=== PATIENT | male | born 1935 | race Caucasian/White ===

== ENCOUNTER 2017-04-03 12:37 | Emergency (ER) | payer MEDICARE, OTHER ==
[~2017-04-03] VITALS: Ht 180.3 cm; Wt 85.0 kg
[~2017-04-03 12:37] MED LIST: CALC12502 PO; CARD120T4 PO; COUM4TAB7 PO; FURO1TAB93 PO; LEVO.025 PO; LISI2.5T3 PO; METO50TA11 PO; OCUVCAP; PACE200T4 PO
[2017-04-03 12:38] VITALS: BP 144/86; PULSE 110; RESP 15; TEMP 98.2; O2SAT 98
[2017-04-03 13:29] VITALS: PULSE 88
[2017-04-03] MEDS ORDERED: ATOR10TA15 PO (13:29)
[2017-04-03] MEDS ORDERED: METO50TA PO (13:29)
[2017-04-03] MEDS ORDERED: DILT180C36 PO (13:29)
[2017-04-03] MEDS ORDERED: FURO40TA PO (13:29)
[2017-04-03] MEDS ORDERED: COUM2.5T PO (13:29)
[2017-04-03] MEDS ORDERED: LISI2.5T3 PO (13:29)
[2017-04-03] MEDS ORDERED: LEVO50TA4 PO (13:29)
[2017-04-03] MEDS ORDERED: POTA-243 PO (13:29)
[2017-04-03] MEDS ORDERED: AMIO200T PO (13:29)
[2017-04-03] MEDS ORDERED: WARF-23 PO (13:29)
--- NOTE | 2017-04-03 13:50 | RADRPT ---
EXAM DATE/TIME: 04/03/2017 13:36 [facility] COMPARISON: No previous studies available for comparison. INDICATIONS : Left tibia/fibula pain, redness, and swelling after hitting his leg on a golf cart. MEDICAL HISTORY : None. SURGICAL HISTORY : Pacemaker. ENCOUNTER: Initial ACUITY: 1 week PAIN SCORE: 5/10 LOCATION: Left tibia/fibula FINDINGS: Two view examination of the left tibia demonstrates no evidence of fracture or dislocation. Bony min eralization is normal. There appears to be some soft tissue prominence in the region of a computer ge nerated arrow In the region of clinical swelling. CONCLUSION: 1. Probable small soft tissue hematoma/cellulitis in the lateral lower leg. 2. No associated fracture. Esvin Villanueva MD on April 03, 2017 at 13:44 Board Certified Radiologist. This report was verified electronically.
--- NOTE | 2017-04-03 13:51 | RADRPT ---
EXAM DATE/TIME: 04/03/2017 13:38 [facility] COMPARISON: No previous studies available for comparison. INDICATIONS : Left ankle pain and bruising after hitting his leg on a golf cart. MEDICAL HISTORY : None. SURGICAL HISTORY : Pacemaker. ENCOUNTER: Initial ACUITY: 1 week PAIN SCORE: 2/10 LOCATION: Left ankle FINDINGS: Three view exam was performed of the left ankle. The bony structures are in normal alignment. No ev idence of fracture or dislocation. There is some mild soft tissue swelling, particularly over the lat eral malleolus. The ankle mortise is intact. No radiopaque foreign bodies are seen. Bony mineraliz ation is normal. CONCLUSION: Mild soft tissue swelling. No acute fracture. Esvin Villanueva MD on April 03, 2017 at 13:49 Board Certified Radiologist. This report was verified electronically.
--- NOTE | 2017-04-03 14:32 | PD ---
HPI Chief Complaint: Skin Problem Time Seen by Provider: 12:59 Travel History International Travel<30 days: No Contact w/Intl Traveler<30days: No Traveled to known affect area: No History of Present Illness HPI 81-year-old male came to the emergency room with history of left leg injury and swelling 1 week ago. Patient says that he had banged his lateral aspect of his left leg accidentally while he was in a golf cart. Patient is on Coumadin for A. fib and since then he has noticed that the leg has been swelling. As a painful knot on the lower lateral aspect of his leg. No fever or chills. She was little tachycardic when he arrived in triage. Patient had an INR done 2 days ago which was 2.9. He is here mainly because of the pain and the swelling. Patient is able to ambulate but the leg hurts a little bit. PFSH Past Medical History Narrative Medical List of his past medical, surgical, social and family history as reviewed from the nursing note. Hx Anticoagulant Therapy: Yes Atrial Fibrillation: Yes Heart Rhythm Problems: Yes (a-fib) Cancer: Yes (SKIN CA) Cardiovascular Problems: Yes High Cholesterol: Yes Chemotherapy: No Chest Pain: Yes Congestive Heart Failure: No Diminished Hearing: No Endocrine: No Genitourinary: No Hypertension: Yes Immune Disorder: No Musculoskeletal: No Neurologic: No Psychiatric: No Reproductive: No Respiratory: No Radiation Therapy: No Thyroid Disease: Yes Past Surgical History Abdominal Surgery: No Arteriovenous Shunt: No Body Medical Devices: pacemaker Ear Surgery: No Endocrine Surgery: No Eye Surgery: No Genitourinary Surgery: No Gynecologic Surgery: No Insulin Pump: No Joint Replacement: No Oral Surgery: No Pacemaker: Yes Thoracic Surgery: No Other Surgery: Yes (VASECTOMY, PACEMAKER) Social History Alcohol Use: No Tobacco Use: No Substance Use: No Allergies-Medications (Allergen,Severity, Reaction): Coded Allergies: No Known Allergies (Unverified , 04/05/17) Comments No known drug allergies. Reported Meds & Prescriptions Reported Meds & Active Scripts Active Keflex (Cephalexin) 500 Mg Cap 500 Mg PO Q8H Reported Warfarin 5 Mg Tab 5 Mg PO MOWEFR Coumadin (Warfarin) 2.5 Mg Tab 2.5 Mg PO SUTUTHSA Dilt-Xr (Diltiazem HCl) 180 Mg Caper 180 Mg PO DAILY Atorvastatin (Atorvastatin Calcium) 10 Mg Tab 10 Mg PO HS Amiodarone (Amiodarone HCl) 200 Mg Tab 200 Mg PO BID Furosemide 40 Mg Tab 40 Mg PO DAILY Metoprolol Tartrate 50 Mg Tab 50 Mg PO BID Klor-Con 10 (Potassium Chloride) 10 Meq Tab 20 Meq PO BID Lisinopril 2.5 Mg Tab 2.5 Mg PO DAILY Levothyroxine (Levothyroxine Sodium) 50 Mcg Tab 50 Mcg PO DAILY Narrative Medication List of his home medications refer him the nursing note. Review of Systems Except as stated in HPI: all other systems reviewed are Neg Physical Exam Narrative GENERAL: Awake, alert, no obvious distress SKIN: Focused skin assessment warm/dry. Left leg on the lower third lateral aspect has a 3 x 3 cm firm and knot that is tender to touch with some central fluctuation. The leg is edematous with some swelling of the dorsum of his foot. There is bruising on the dorsum of his base of the toes. Distal neurovascular intact HEAD: Atraumatic. Normocephalic. EYES: Pupils equal and round. No scleral icterus. No injection or drainage. ENT: No nasal bleeding or discharge. Mucous membranes pink and moist. NECK: Trachea midline. No JVD. CARDIOVASCULAR: Regular rate and rhythm. No murmur appreciated. RESPIRATORY: No accessory muscle use. Clear to auscultation. Breath sounds equal bilaterally. GASTROINTESTINAL: Abdomen soft, non-tender, nondistended. Hepatic and splenic margins not palpable. MUSCULOSKELETAL: No obvious deformities. No clubbing. No cyanosis. No edema. NEUROLOGICAL: Awake and alert. No obvious cranial nerve deficits. Motor grossly within normal limits. Normal speech. PSYCHIATRIC: Appropriate mood and affect; insight and judgment normal. Data Data Last Documented VS Vital Signs Date Time Temp Pulse Resp B/P (MAP) Pulse Ox O2 Delivery O2 Flow Rate FiO2 04/03/17 16:16 04/03/17 13:29 88 04/03/17 12:38 98.2 15 98 Orders Orders Ankle, Complete ([id number]) (04/03/17 ) Tibia/Fibula (Ap/Lat) (04/03/17 ) Wound Culture And Gram Stain (04/03/17 14:57) Lidocaine 1% Inj (50 Ml) (Xylocaine 1% I (04/03/17 14:59) Lidocaine Pf 1% Inj (Xylocaine-Mpf 1% In (04/03/17 15:15) Lidocaine 1% Inj (50 Ml) (Xylocaine 1% I (04/03/17 15:15) [facility] Medical Decision Making Medical Screen Exam Complete: Yes Emergency Medical Condition: Yes Medical Record Reviewed: Yes Differential Diagnosis Hematoma, abscess, cellulitis, fracture Narrative Course 2:50 PM x-rays within normal limit. I did not repeat an INR since one was done 2 days ago which was 2.9. 3:29 PM I have I&D the hematoma which in my opinion was getting infected. Patient tolerated the procedure well. Please refer to my procedure note. He will be discharged home and asked to follow-up in 48 hours. We'll give him an antibiotic prescription to go home with. Procedures Procedure Narrative Incision and drainage: The left leg was cleaned with Betadine swab 3. 1% lidocaine 5 mL was infiltrated to the subcutaneous tissue. 2 cm incision was made with a scalpel under sterile precautions. With the help of forceps as well as Q-tip the hematoma was evacuated. Swab was collected and sent. Patient tolerated the procedure well. Packing was done with half-inch iodoform gauze strip. Dressing was applied with 4 x 4 gauze and Curlex. Bleeding was controlled. EKG Prior to Arrival: No Diagnosis Primary Impression: Infection of wound hematoma Referrals: Primary Care Physician Additional Instructions: Please return to the ER in 48 hours to have the packing removed. You can come to [facility] emergency room where I am working 4 PM to 12 AM on Friday. I will be happy to see you they're. Take the antibiotic as per the prescription direction. Keep the leg elevated above the heart level. Compression stockings at all times except was taking shower. Hold your next to Coumadin doses. Med/Other Pt SpecificInfo: Prescription(s) given Scripts Cephalexin (Keflex) 500 Mg Cap 500 MG PO Q8H for Infection, #30 CAP 0 Refills Prov: Santy Roy MD 04/03/17 Disposition: 01 DISCHARGE HOME Condition: Stable Santy Roy MD Apr 03, 2017 14:32
[2017-04-03] MEDS ORDERED: LIDOCAINE HCL 1% 50 ML VIAL ONE (14:59)
[2017-04-03] MEDS ORDERED: LIDOCAINE HCL 1% 50 ML VIAL INFIL ONE (15:15)
[2017-04-03] MEDS ORDERED: LIDOCAINE HCL 1% PF 30 ML VIAL INFIL ONE (15:15)
[2017-04-03] MEDS ORDERED: CEPH-460 PO (15:31)
== END 2017-04-03 16:17 | disposition home or self-care (01) ==
LOC: NEPC 12:37
DX: S80.12XA Contusion of left lower leg, initial encounter (principal); W22.09XA Striking against other stationary object, initial encounter; I48.91 Unspecified atrial fibrillation; I10 Essential (primary) hypertension; Y92.39 Other specified sports and athletic area as the place of occurrence of the external cause; Y93.I9 Activity, other involving external motion; Z79.01 Long term (current) use of anticoagulants
CPT/HCPCS: 10140; 73590; 73610; 87070

== ENCOUNTER 2017-04-05 17:13 | Emergency (ER) | payer MEDICARE, OTHER ==
[~2017-04-05] VITALS: Ht 180.3 cm; Wt 88.7 kg
[~2017-04-05 17:13] MED LIST changes: +AMIO200T PO; +ATOR10TA15 PO; -CALC12502 PO; -CARD120T4 PO; +CEPH-460 PO; +COUM2.5T PO; -COUM4TAB7 PO; +DILT180C36 PO; -FURO1TAB93 PO; +FURO40TA PO; -LEVO.025 PO; +LEVO50TA4 PO; +METO50TA PO; -METO50TA11 PO; -OCUVCAP; -PACE200T4 PO; +POTA-243 PO; +WARF-23 PO
[2017-04-05 17:16] VITALS: BP 156/87; PULSE 95; RESP 18; TEMP 97.2; O2SAT 97
--- NOTE | 2017-04-05 17:28 | PD ---
HPI Chief Complaint: Wound/Suture/Staple Re-Check Time Seen by Provider: 17:27 Travel History International Travel<30 days: No Contact w/Intl Traveler<30days: No Traveled to known affect area: No History of Present Illness HPI 81-year-old male was seen by me 2 days ago for an infected hematoma of his left leg. His hematoma was evacuated by I & D by me. Packing was applied and I had asked him to follow-up in 48 hours. He wanted to follow up with me and is here for the same. Patient has followed all the instructions like I had told him very well. He is currently on antibiotic that was prescribed. Vital signs are stable. Patient complains of some leg pain when he walks. He says that he never took the compression stockings off since he put them on 48 hours ago. His culture of the wound did not grow any bacteria. [facility] Past Medical History Narrative Medical List of his past medical, surgical, social and family history is reviewed from the nursing note. Hx Anticoagulant Therapy: Yes (COUMADIN) Atrial Fibrillation: Yes Heart Rhythm Problems: Yes (a-fib) Cancer: Yes (SKIN CA) Cardiovascular Problems: Yes (CHF,PACER,AFIB) High Cholesterol: Yes Chemotherapy: No Chest Pain: Yes Congestive Heart Failure: No Diminished Hearing: No Endocrine: No Genitourinary: No Hypertension: Yes Immune Disorder: No Musculoskeletal: No Neurologic: No Psychiatric: No Reproductive: No Respiratory: No Radiation Therapy: No Thyroid Disease: Yes Past Surgical History Abdominal Surgery: No Arteriovenous Shunt: No Body Medical Devices: pacemaker Ear Surgery: No Endocrine Surgery: No Eye Surgery: No Genitourinary Surgery: No Gynecologic Surgery: No Insulin Pump: No Joint Replacement: No Oral Surgery: No Pacemaker: Yes Thoracic Surgery: No Other Surgery: Yes (VASECTOMY, PACEMAKER) Social History Alcohol Use: No Tobacco Use: No Substance Use: No Allergies-Medications (Allergen,Severity, Reaction): Coded Allergies: No Known Allergies (Unverified , 04/05/17) Comments No known drug allergies. Reported Meds & Prescriptions Reported Meds & Active Scripts Active Keflex (Cephalexin) 500 Mg Cap 500 Mg PO Q8H Reported Warfarin 5 Mg Tab 5 Mg PO MOWEFR Coumadin (Warfarin) 2.5 Mg Tab 2.5 Mg PO SUTUTHSA Dilt-Xr (Diltiazem HCl) 180 Mg Caper 180 Mg PO DAILY Atorvastatin (Atorvastatin Calcium) 10 Mg Tab 10 Mg PO HS Amiodarone (Amiodarone HCl) 200 Mg Tab 200 Mg PO BID Furosemide 40 Mg Tab 40 Mg PO DAILY Metoprolol Tartrate 50 Mg Tab 50 Mg PO BID Klor-Con 10 (Potassium Chloride) 10 Meq Tab 20 Meq PO BID Lisinopril 2.5 Mg Tab 2.5 Mg PO DAILY Levothyroxine (Levothyroxine Sodium) 50 Mcg Tab 50 Mcg PO DAILY Narrative Medication List of his home medications reviewed from the nursing note. Review of Systems Except as stated in HPI: all other systems reviewed are Neg Musculoskeletal: Positive: Pain Skin: Positive Other (drained hematoma with packing) Physical Exam Narrative GENERAL: Awake, alert, no obvious distress SKIN: Focused skin assessment warm/dry. Slight surrounding erythema around the wound. Packing wick is out and I pulled the entire packing was taken out. The wound looks good. The leg in the foot swelling is much better. Still some ecchymosis of the toes. HEAD: Atraumatic. Normocephalic. EYES: Pupils equal and round. No scleral icterus. No injection or drainage. ENT: No nasal bleeding or discharge. Mucous membranes pink and moist. NECK: Trachea midline. No JVD. CARDIOVASCULAR: Regular rate and rhythm. No murmur appreciated. RESPIRATORY: No accessory muscle use. Clear to auscultation. Breath sounds equal bilaterally. GASTROINTESTINAL: Abdomen soft, non-tender, nondistended. Hepatic and splenic margins not palpable. MUSCULOSKELETAL: No obvious deformities. No clubbing. No cyanosis. No edema. NEUROLOGICAL: Awake and alert. No obvious cranial nerve deficits. Motor grossly within normal limits. Normal speech. PSYCHIATRIC: Appropriate mood and affect; insight and judgment normal. Data Data Last Documented VS Vital Signs Date Time Temp Pulse Resp B/P (MAP) Pulse Ox O2 Delivery O2 Flow Rate FiO2 04/05/17 17:16 97.2 95 18 156/87 (110) 97 MDM Medical Decision Making Medical Screen Exam Complete: Yes Emergency Medical Condition: Yes Medical Record Reviewed: Yes Differential Diagnosis Infected hematoma, packing removal Narrative Course 5:40 PM packing was taken out. Wound looks very good. Patient was given further instructions and he'll be discharged home. He will resume his Coumadin. Procedures Procedure Narrative Packing removal: The packing was taken out with sterile forceps by me. The wound cavity was inspected. No active bleeding. No foul smelling discharge. The wound inside and the skin surrounding looked healthy. Dry gauze dressing and Kerlix was applied by me on the wound. Patient tolerated the procedure very well. EKG Prior to Arrival: No Diagnosis Primary Impression: Change or removal of wound packing Referrals: Primary Care Physician 3 days Additional Instructions: Change the dressing once every 24 hours with dry gauze and Kerlix. He could also use just dry gauze and tape. Keep the leg elevated above heart level for the next couple days. Walking as tolerated. Continue taking the antibiotic to finish the course. Follow-up with the primary care in 3-4 days for wound check. Return to the ER if the condition worsens or any other new concerns. Take Tylenol or ibuprofen or Motrin for pain. Resume your Coumadin. Med/Other Pt SpecificInfo: No Change to Meds Disposition: 01 DISCHARGE HOME Condition: Stable Santy Roy MD Apr 05, 2017 17:28
== END 2017-04-05 17:51 | disposition home or self-care (01) ==
LOC: PHEFT 17:13
DX: S81.802D Unspecified open wound, left lower leg, subsequent encounter (principal); X58.XXXD Exposure to other specified factors, subsequent encounter; Z48.00 Encounter for change or removal of nonsurgical wound dressing
CPT/HCPCS: 99281